=== PATIENT | female | born 1965 | race African-American/Black ===

== ENCOUNTER 2021-05-12 19:56 | Emergency (ER) | payer BC, MEDICAID ==
[~2021-05-12] VITALS: Ht 170.2 cm; Wt 90.0 kg
[2021-05-12] MEDS ORDERED: IPRATROPIUM BROMIDE (0.02%) 0.5MG/2.5ML NEB HHN STA (20:07)
[2021-05-12] MEDS ORDERED: METHYLPREDNISOLONE SOD SUCC 125 MG/2 ML VIAL IV STA (20:07)
[2021-05-12] MEDS ORDERED: MAGNESIUM 2 G PREMIX 50 ML IV ONE (20:15)
[2021-05-12] MEDS ORDERED: ALBUTEROL (0.083%) 2.5MG/3ML NEB HHN SCH (20:30)
[2021-05-12 20:44] VITALS: BP 146/81
[2021-05-12 21:17] LABS: BASOPHILS % 0.6 % (0.0-2.0); EOSINOPHILS % 2.2 % (0.0-5.0); HEMOGLOBIN. 14.1 g/dL (12.0-16.0); LYMPHOCYTES % 41.5 % (20.0-50.0); MEAN CORPUSCULAR HEMOGLOBIN 31.2 pg (28.0-32.0); MEAN CORPUSCULAR VOLUME 92.9 fL (81.0-99.0); MEAN PLATELET VOLUME 9.6 fl (7.4-10.4); NEUTROPHILS % 47.7 % (40.0-76.0); PLATELET 219 x1000/uL (130-400); RED BLOOD CELL COUNT 4.52 mill/uL (4.2-5.4); RED CELL DISTRIBUTION WIDTH 13.2 % (11.6-14.6)
[2021-05-12 21:20] LABS: CHLORIDE 108 mEq/L (98-107)
[2021-05-12] MEDS ORDERED: P50 MT (21:48)
== END 2021-05-12 22:18 | disposition home or self-care (01) ==
LOC: ER 19:56
DX: J45.909 Unspecified asthma, uncomplicated (principal); Z79.51 Long term (current) use of inhaled steroids
CPT/HCPCS: 36415; 80053; 83880; 84484; 85025; 94640; 96365; 96375; 99284; J2930; J3475